=== PATIENT | female | born 1965 | race African-American/Black ===

== ENCOUNTER 2017-07-12 11:00 | Outpatient (RCR) | payer OTHER | END 2017-07-22 | LOC: OT 11:00 | PROVIDERS: ATTEND Surgery Surgery of the Hand | DX: M18.11 Unilateral primary osteoarthritis of first carpometacarpal joint, right hand (principal); G56.01 Carpal tunnel syndrome, right upper limb | CPT/HCPCS: L3808; L3913 ==